=== PATIENT | female | born 1995 | race Hispanic/Latino ===

== ENCOUNTER 2023-01-12 13:48 | Outpatient (CLI) | payer OTHER | END 2023-01-12 13:49 | disposition home or self-care (01) | LOC: BICULT 13:48 | PROVIDERS: ATTEND Family Medicine | DX: O09.892 Supervision of other high risk pregnancies, second trimester (principal); Z3A.24 24 weeks gestation of pregnancy; O44.42 Low lying placenta NOS or without hemorrhage, second trimester | CPT/HCPCS: 76805 ==